=== PATIENT | male | born 1990 | race Caucasian/White ===

== ENCOUNTER 2020-10-11 18:16 | Emergency (ER) | payer OTHER ==
[2020-10-11] MEDS ORDERED: ALBUTEROL 1 PUFF INH STA (19:17)
--- NOTE | 2020-10-11 19:24 | ED Physician Documentation ---
History of Present Illness - Stated complaint Stated Complaint: C+, SOA, COUGH, FEVER - Chief complaint Chief Complaint: Resp - History obtained from History obtained from: Patient - History of Present Illness Pain level max: 4 Pain level now: 2 - Additonal information Additional information: Patient states he has been sick for about the past 7 days. He states that he got a confirmed positive Covid test 3 days ago. Increased shortness of breath, coughing. Has a history of asthma. Currently not using an inhaler. Has fevers, body aches and chills. Not vaccinated against Covid. Review of Systems Constitutional: reports: Fever. denies: Chills Respiratory: reports: Cough GI: denies: Vomiting, Diarrhea Skin: denies: Rash Musculoskeletal: denies: Neck pain, Back pain Neurologic: denies: Headache PD PAST MEDICAL HISTORY - Past Medical History Cardiovascular: None Respiratory: None Endocrine/Autoimmune: None GI: None Musculoskeletal: Chronic back pain - Past Surgical History Past Surgical History: Yes General: Appendectomy Ortho: Arthroscopic surgery - Present Medications Home Medications: Ambulatory Orders Medication Instructions Recorded Confirmed Albuterol Sulf [Ventolin Hfa 1 - 2 puffs INH Q4HR PRN #1 inhaler 10/11/20 Inhaler] - Allergies Allergies/Adverse Reactions: Allergies Allergy/AdvReac Type Severity Reaction Status Date / Time No Known Drug Allergies Allergy Verified 10/11/20 18:33 - Social History Does the pt smoke?: Yes Smoking Status: Current every day smoker Does the pt drink ETOH?: Yes Does the pt have substance abuse?: No - Immunizations Immunizations are current?: Yes - POLST Patient has POLST: No PD ED PE NORMAL - Vitals Vital signs reviewed: Yes - General General: Alert and oriented X 3, No acute distress - HEENT HEENT: Moist mucous membranes - Neck Neck: Supple, no meningeal sign - Cardiac Cardiac: RRR, Strong equal pulses - Respiratory Respiratory: No respiratory distress, Other (mild wheezing B) - Abdomen Abdomen: Soft, Non tender, Non distended - Derm Derm: Warm and dry - Neuro Neuro: Alert and oriented X 3 - Psych Psych: Normal mood, Normal affect Results - Vitals Vitals: Vital Signs - 24 hr 10/11/20 10/11/20 10/11/20 18:27 19:33 20:15 Temperature 36.9 C Heart Rate 96 90 89 Respiratory 21 22 23 Rate Blood Pressure 129/82 H 112/71 O2 Saturation 96 93 Oxygen O2 Source Room air - Rads (name of study) cxr Radiology: Final report received, EMP read contemporaneously, See rad report (Low lung volumes with bilateral alveolar opacities suspicious for pneumonia without effusion. ) PD MEDICAL DECISION MAKING - ED course Complexity details: reviewed results, considered differential, d/w patient ED course: 30-year-old male, known Covid positive. Appears to have Covid on chest x-ray. No hypoxia. He does have a history of asthma, we will prescribe an inhaler for him. Monoclonal antibodies were not available here this time of night. Offered that he can return tomorrow if you would like the monoclonal antibodies. Patient counseled regarding signs and symptoms for which I believe and urgent re-evaluation would be necessary. Patient with good understanding of and agreement to plan and is comfortable going home at this time This document was made in part using voice recognition software. While efforts are made to proofread this document, sound alike and grammatical errors may occur. No respiratory distress. Departure - Departure Disposition: 01 Home, Self Care Clinical Impression: COVID-19 Condition: Good Instructions: COVID-[address] [facility] Follow-Up: your,doctor in 1 week [Other] Prescriptions: Albuterol Sulf [Ventolin Hfa Inhaler] 1 - 2 puffs INH Q4HR PRN #1 inhaler PRN Reason: Shortness Of Air/Wheezing Comments: Your x-ray is consistent with Covid. Please return if you worsen. You can continue to use the inhaler at home. We did discuss monoclonal antibody treatment. You are a candidate for this and if you would like to receive this, you can return to the emergency department between 8 AM and 3 PM any day this week to have the monoclonal antibodies administered. You have 10 days from the onset of symptoms to receive this treatment. You also need to continue to quarantine yourself until all of your symptoms have resolved. You should be reCovid tested at that time to ensure you are not shedding virus. Discharge Date/Time: 10/11/20 20:40
--- NOTE | 2020-10-11 20:05 | XRAY Report ---
PROCEDURE: Chest 1 View X-Ray INDICATIONS: cough, covid + TECHNIQUE: One view of the chest was acquired. COMPARISON: 10/29/2015 FINDINGS: Surgical changes and devices: None. Lungs and pleura: Low lung volumes. Interstitial thickening and multifocal hazy alveolar opacities in both lungs, left worse than right. No visible pleural effusion. No pneumothorax. Mediastinum: Mediastinal contours appear normal. Heart size is normal. Bones and chest wall: No suspicious bony lesions. Overlying soft tissues appear unremarkable. IMPRESSION: Low lung volumes with bilateral alveolar opacities suspicious for pneumonia without effusion. Reviewed by: Molly Lopez MD on 10/11/2020 8:04 PM PDT Approved by: Molly Lopez MD on 10/11/2020 8:04 PM PDT Station ID: [id number]
[2020-10-11 20:17] VITALS: BP 112/71
== END 2020-10-11 20:40 | disposition home or self-care (01) ==
LOC: ED 18:16
DX: U07.1 COVID-19 (principal); F17.200 Nicotine dependence, unspecified, uncomplicated
CPT/HCPCS: 94640; 99283; 99284

== ENCOUNTER 2020-11-03 18:55 | Outpatient (CLI) | payer OTHER | END 2020-11-03 23:59 | disposition home or self-care (01) | LOC: LAB.N 18:55 | PROVIDERS: ATTEND Nurse Practitioner | DX: L03.115 Cellulitis of right lower limb (principal) | CPT/HCPCS: 87070; 87181; 87205 ==

== ENCOUNTER 2021-02-05 16:05 | Outpatient (CLI) | payer OTHER ==
[2021-02-05 16:42] LABS: BASOPHILS # (AUTO) 0.1 10^3/uL (0.0-0.1); BASOPHILS % (AUTO) 0.5 %; EOSINOPHILS # (AUTO) 0.3 10^3/uL (0.0-0.7); EOSINOPHILS % (AUTO) 2.5 %; HCT - HEMATOCRIT 45.5 % (42.0-52.0); HGB - HEMOGLOBIN 15.4 g/dL (14.0-18.0); LYMPHOCYTES # (AUTO) 2.5 10^3/uL (1.5-3.5); LYMPHOCYTES % (AUTO) 22.2 %; MEAN CORPUSCULAR HEMOGLOBIN 30.7 pg (27.0-31.0); MEAN CORPUSCULAR HGB CONC 33.8 g/dL (32.0-36.0); MEAN CORPUSCULAR VOLUME 90.8 fL (80.0-94.0); MEAN PLATELET VOLUME 9.5 fL (7.4-11.4); MONOCYTES # (AUTO) 0.8 10^3/uL (0.0-1.0); MONOCYTES % (AUTO) 7.5 %; NEUTROPHILS # (AUTO) 7.4 10^3/uL (1.5-6.6); NEUTROPHILS % (AUTO) 66.5 %; PLT - PLATELET COUNT 260 10^3/uL (130-450); RED BLOOD COUNT 5.01 10^6/uL (4.70-6.10); RED CELL DISTRIBUTION WIDTH 12.8 % (12.0-15.0); WHITE BLOOD COUNT 11.1 x10^3/uL (4.8-10.8)
[2021-02-05 16:59] LABS: ALBUMIN 4.6 g/dL (3.2-5.5); ALBUMIN/GLOBULIN RATIO 1.3 (1.0-2.2); ALKALINE PHOSPHATASE 68 IU/L (42-121); ALT ALANINE AMINOTRANSFERASE 62 IU/L (10-60); AST ASPARTATE AMINOTRANSFERASE 32 IU/L (10-42); BILIRUBIN,TOTAL 0.5 mg/dL (0.2-1.0); BUN - BLOOD UREA NITROGEN 18 mg/dL (6-20); CALCIUM 9.6 mg/dL (8.5-10.3); CARBON DIOXIDE - CO2 28 mmol/L (21-32); CHLORIDE 101 mmol/L (101-111); CREATININE 0.8 mg/dL (0.6-1.2); GFR - MDRD 114 (>89); GLUCOSE 104 mg/dL (70-100); POTASSIUM 3.9 mmol/L (3.5-5.0); SODIUM 139 mmol/L (135-145); TOTAL PROTEIN 8.1 g/dL (6.7-8.2)
[2021-02-05 17:01] LABS: BILIRUBIN,DIRECT < 0.1 mg/dL (0.1-0.5)
[2021-02-08 18:57] LABS: HEPATITIS B SURFACE ANTIGEN NON-REACTIVE (NON-REACTIVE); HEPATITIS C ANTIBODY NON-REACTIVE (NON-REACTIVE)
== END 2021-02-05 16:06 | disposition home or self-care (01) ==
LOC: LAB 16:05
PROVIDERS: ATTEND Physician Assistant
DX: L30.9 Dermatitis, unspecified (principal)
CPT/HCPCS: 36415; 80053; 80076; 81599; 85025; 86317; 86705; 86803; 87340

== ENCOUNTER 2021-09-30 13:05 | Outpatient (CLI) | payer OTHER ==
--- NOTE | 2021-09-30 15:36 | XRAY Report ---
PROCEDURE: Foot 3 View LT INDICATIONS: JOINT PAIN IN RT HAND LEFT FOOT TECHNIQUE: 3 views of the foot were acquired. COMPARISON: X-ray foot 12/28/2016 FINDINGS: Bones: No fractures or dislocations. No suspicious bony lesions. Soft tissues: No tibiotalar joint effusion. Achilles tendon appears normal. IMPRESSION: No visualized acute fracture or dislocation. However, occult injury cannot be excluded. Recommend eugene rt interval imaging follow-up in 7-10 days as clinically indicated for additional evaluation. Reviewed by: Jessica Kenny MD on 09/30/2021 3:35 PM PDT Approved by: Jessica Kenny MD on 09/30/2021 3:35 PM PDT Station ID: [id number]
--- NOTE | 2021-10-01 08:51 | XRAY Report ---
PROCEDURE: Hand 3 View RT INDICATIONS: JOINT PAIN IN RT HAND LEFT FOOT TECHNIQUE: 3 views of the hand(s) acquired. COMPARISON: X-ray right hand 3 views, 01/22/2014. FINDINGS: Bones: Old fourth and fifth metacarpal fractures with internal fixation. No fractures or dislocation s. No suspicious bony lesions. Degenerative joint disease. Ulnar negative variant. Soft tissues: N o suspicious soft tissue calcifications. IMPRESSION: 1. Old fracture with internal fixation. 2. Mild degenerative joint disease. 3. Ulnar negative variant. Reviewed by: Ashley Betancur MD on 10/01/2021 8:49 AM PDT Approved by: Ashley Betancur MD on 10/01/2021 8:49 AM PDT Station ID: [id number]
== END 2021-09-30 13:06 | disposition home or self-care (01) ==
LOC: DI 13:05
PROVIDERS: ATTEND Registered Nurse
DX: M25.541 Pain in joints of right hand (principal); M25.572 Pain in left ankle and joints of left foot; M19.041 Primary osteoarthritis, right hand; S62.304D Unspecified fracture of fourth metacarpal bone, right hand, subsequent encounter for fracture with routine healing; S62.306D Unspecified fracture of fifth metacarpal bone, right hand, subsequent encounter for fracture with routine healing

== ENCOUNTER 2023-04-04 15:15 | Outpatient (CLI) | payer OTHER ==
--- NOTE | 2023-04-04 20:26 | Ultrasound Report ---
PROCEDURE: Testicle INDICATIONS: LEFT TESTICULAR PAIN TECHNIQUE: Real-time scanning was performed of the scrotum and testicles, with image documentation. Color and p ulse Doppler interrogation was performed of both testicles. COMPARISON: None. FINDINGS: Right: Testicle is normal in size at 3.25 x 2.07 x 3.0 cm, and homogenous in echotexture. Epididymi s is normal in overall size and morphology. No hydrocele. No varicoceles. Overlying scrotal skin is normal in thickness. Left: Testicle is normal in size at 3.3 x 2.58 x 3.0 cm, and homogeneous in echotexture. Epididymis is normal in overall size and morphology. No hydrocele. Left-sided varicoceles are seen. Overlying scrotal skin is normal in thickness. Doppler: Color and pulse Doppler demonstrate normal arterial flow in right testes and the right epid idymis. Increased arterial flow within left testes and left epididymis is seen. IMPRESSION: 1.Finding is suggestive of left-sided orchitis and epididymitis. Mild left-sided varicoceles. 2. No hydrocele. No solid-appearing testicular lesion. Reviewed by: Benito Kurtz MD on 04/04/2023 8:25 PM PST Approved by: Benito Kurtz MD on 04/04/2023 8:25 PM PST Station ID: [id number]
== END 2023-04-04 15:16 | disposition home or self-care (01) ==
LOC: DI 15:15
PROVIDERS: ATTEND Physician Assistant
DX: N50.812 Left testicular pain (principal); I86.1 Scrotal varices

== ENCOUNTER 2023-09-29 09:58 | Outpatient (CLI) | payer OTHER, BC ==
[2023-09-29 18:22] LABS: BASOPHILS # (AUTO) 0.1 10^3/uL (0.0-0.1); EOSINOPHILS # (AUTO) 0.5 10^3/uL (0.0-0.7); EOSINOPHILS % (AUTO) 5.4 %; HCT - HEMATOCRIT 47.1 % (42.0-52.0); HGB - HEMOGLOBIN 15.1 g/dL (14.0-18.0); LYMPHOCYTES # (AUTO) 2.6 10^3/uL (1.5-3.5); LYMPHOCYTES % (AUTO) 29.3 %; MEAN CORPUSCULAR HEMOGLOBIN 29.8 pg (27.0-31.0); MEAN CORPUSCULAR HGB CONC 32.1 g/dL (32.0-36.0); MEAN CORPUSCULAR VOLUME 93.1 fL (80.0-94.0); MEAN PLATELET VOLUME 10.2 fL (7.4-11.4); MONOCYTES # (AUTO) 0.6 10^3/uL (0.0-1.0); MONOCYTES % (AUTO) 6.9 %; NEUTROPHILS # (AUTO) 5.1 10^3/uL (1.5-6.6); NEUTROPHILS % (AUTO) 57.1 %; PLT - PLATELET COUNT 300 10^3/uL (130-450); RED BLOOD COUNT 5.06 10^6/uL (4.70-6.10); RED CELL DISTRIBUTION WIDTH 12.6 % (12.0-15.0)
[2023-09-29 18:23] LABS: ALBUMIN 4.4 g/dL (3.2-5.5); ALBUMIN/GLOBULIN RATIO 1.4 (1.0-2.2); ALKALINE PHOSPHATASE 84 IU/L (42-121); ALT ALANINE AMINOTRANSFERASE 35 IU/L (10-60); AST ASPARTATE AMINOTRANSFERASE 20 IU/L (10-42); BILIRUBIN,TOTAL 0.6 mg/dL (0.2-1.0); BUN - BLOOD UREA NITROGEN 13 mg/dL (6-20); CALCIUM 10.1 mg/dL (8.5-10.3); CARBON DIOXIDE - CO2 29 mmol/L (21-32); CHLORIDE 106 mmol/L (101-111); CHOL/HDL RATIO 4.3 (<5.0); CHOLESTEROL 162 mg/dL; CREATININE 0.8 mg/dL (0.6-1.3); CRP - C-REACTIVE PROTEIN < 0.5 mg/dL (<0.5); GFR - MDRD 112 (>89); GLUCOSE 92 mg/dL (74-104); HDL CHOLESTEROL 38 mg/dL; LDL CHOLESTEROL,CALCULATED 100 mg/dL; LDL/HDL RATIO 2.6 (<3.6); LIPASE 11 U/L (11-82); POTASSIUM 4.4 mmol/L (3.5-4.5); SODIUM 140 mmol/L (135-145); TOTAL PROTEIN 7.5 g/dL (6.4-8.9); TRIGLYCERIDES 121 mg/dL; VLDL CHOLESTEROL 24 mg/dL
[2023-09-29 18:36] LABS: THYROID STIMULATING HORMONE 0.99 uIU/mL (0.34-5.60)
[2023-09-29 20:17] LABS: ESTIMATED AVERAGE GLUCOSE 85 mg/dL (70-100); HEMOGLOBIN A1c% 4.6 % (4.27-6.07)
== END 2023-09-29 09:59 | disposition home or self-care (01) ==
LOC: LAB.N 09:58
DX: R10.13 Epigastric pain (principal)
CPT/HCPCS: 36415; 80053; 80061; 83036; 83690; 83721; 84443; 85025; 85651; 86140